=== PATIENT | female | born 1940 | race American Indian/Alaskan Native ===

== ENCOUNTER 2019-02-07 08:58 | Outpatient (CLI) | payer MEDICARE ==
--- NOTE | 2019-02-07 09:59 | Ultrasound Report ---
LEFT BREAST ULTRASOUND HISTORY: The patient presents for evaluation of an area of clinical concern in the periareolar area o f the left breast. She initially complained of pain. COMPARISON: 12/29/2018 mammogram FINDINGS: Sonographic evaluation focused upon the area of clinical concern in the subareolar and richar areolar location demonstrates moderate duct ectasia with internal echoes within the ducts. However, n o mass or suspicious shadowing. Mild nipple retraction which is not different from the opposite side. 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 If the clinical examination remains stable, recommend bilateral annual screening mammographic evaluat ion. BIRADS 2: Benign Signer Name: Ismael Luong MD Signed: 02/07/2019 9:55 AM Workstation Name: [id number]
== END 2019-02-07 08:59 | disposition home or self-care (01) ==
LOC: SPVWC 08:58
PROVIDERS: ATTEND Surgery
DX: N60.42 Mammary duct ectasia of left breast (principal)

== ENCOUNTER 2020-05-07 09:22 | Outpatient (CLI) | payer MEDICARE ==
--- NOTE | 2020-05-07 10:50 | Mammography Report ---
DIGITAL SCREENING MAMMOGRAM WITH CAD, 05/07/2020 CLINICAL INFORMATION / INDICATION: Routine screening mammography. TECHNIQUE: Digital bilateral 2D mammography was obtained in the craniocaudal and mediolateral obliqu e projections. This examination was interpreted with the benefit of Computer-Aided Detection analysis . COMPARISON: 05/04/2019, 05/03/2018 FINDINGS: Breast Density: There are scattered areas of fibroglandular density. No dominant mass, suspicious calcifications, or architectural distortion in either breast. Right breast postsurgical changes are stable. Bilateral benign calcifications are unchanged. IMPRESSION: No mammographic evidence of malignancy. Follow up recommendation: Routine yearly BI-RADS Category 2: Benign. A "normal" or negative report should not discourage follow up or biopsy of a clinically significant f inding. A written summary of these findings will be mailed to the patient. The patient will be entered into a mammography reporting system which will generate a reminder letter for the patient's next appointmen t at the appropriate interval. The [employer] recommends yearly mammograms starting at age 40 and continuing as l doug as a woman is in good health. Breast MRI is recommended for women with an approximate 20-25% or greater lifetime risk of breast cancer, including women with a strong family history of breast or ova jossie cancer or who have been treated for Hodgkin's disease. Signer Name: Carlos Jean MD Signed: 05/07/2020 10:46 AM Workstation Name: [email or web address]
== END 2020-05-07 09:23 | disposition home or self-care (01) ==
LOC: SPVWC 09:22
PROVIDERS: ATTEND Surgery
DX: Z12.31 Encounter for screening mammogram for malignant neoplasm of breast (principal); N64.89 Other specified disorders of breast
CPT/HCPCS: 77067

== ENCOUNTER 2021-05-14 10:21 | Outpatient (CLI) | payer MEDICARE ==
--- NOTE | 2021-05-15 11:09 | Mammography Report ---
DIGITAL SCREENING MAMMOGRAM WITH CAD, 05/14/2021 CLINICAL INFORMATION / INDICATION: Routine screening mammography. Z12.31 TECHNIQUE: Digital bilateral 2D mammography was obtained in the craniocaudal and mediolateral obliqu e projections. This examination was interpreted with the benefit of Computer-Aided Detection analysis . COMPARISON: 05/07/2020 FINDINGS: Breast Density: There are scattered areas of fibroglandular density. No dominant mass, suspicious calcifications, or architectural distortion in either breast. Postbiopsy change right breast. IMPRESSION: No mammographic evidence of malignancy. Follow up recommendation: Routine yearly BI-RADS Category 1: NEGATIVE A "normal" or negative report should not discourage follow up or biopsy of a clinically significant f inding. A written summary of these findings will be mailed to the patient. The patient will be entered into a mammography reporting system which will generate a reminder letter for the patient's next appointmen t at the appropriate interval. The [employer] recommends yearly mammograms starting at age 40 and continuing as l doug as a woman is in good health. Breast MRI is recommended for women with an approximate 20-25% or greater lifetime risk of breast cancer, including women with a strong family history of breast or ova jossie cancer or who have been treated for Hodgkin's disease. Signer Name: John Newman MD Signed: 05/15/2021 11:05 AM Workstation Name: [email or web address]
== END 2021-05-14 10:22 | disposition home or self-care (01) ==
LOC: SPVWC 10:21
PROVIDERS: ATTEND Surgery
DX: Z12.31 Encounter for screening mammogram for malignant neoplasm of breast (principal)
CPT/HCPCS: 77067